=== PATIENT | female | born 1970 | race African-American/Black ===

== ENCOUNTER 2017-07-26 23:08 | Emergency (ER) | payer SELFPAY ==
[2017-07-26 23:58] LABS: BASOPHIL 0.6 % (0-2); EOSINOPHIL 2.4 % (0-5); HCT 42.4 % (37.0-47.0); HGB 14.3 g/dl (12.5-16.0); LYMPHOCYTE 23.1 % (15-48); MCH 29.5 pg (25.0-31.0); MCHC 33.7 g/dL (32.0-36.0); MCV 87.6 fL (78.0-100.0); MONOCYTE 5.9 % (0-12); MPV 11.5 fL (6.0-9.5); PLT 246 K/uL (150-400); RBC 4.84 M/uL (4.20-5.40); RDW 14.3 % (11.5-14.0); WBC 9.1 K/uL (4.0-10.5)
[2017-07-27 00:20] LABS: ALBUMIN 3.5 g/dL (3.5-5.0); BILIRUBIN - TOTAL 0.4 mg/dL (0.1-1.0); CREATININE 0.7 mg/dL (0.5-1.0); GLOBULIN (CALCULATION) 4.1 g/dL (2.2-4.2); POTASSIUM 3.8 mmol/L (3.5-5.1); TOTAL PROTEIN 7.6 g/dL (6.4-8.3)
== END 2017-07-27 02:59 | disposition home or self-care (01) ==
LOC: FER 23:08
PROVIDERS: Emergency Medicine Emergency Medical Services
DX: R10.84 Generalized abdominal pain (principal); R11.2 Nausea with vomiting, unspecified; R19.7 Diarrhea, unspecified; F17.210 Nicotine dependence, cigarettes, uncomplicated; I10 Essential (primary) hypertension; Z90.710 Acquired absence of both cervix and uterus; Z79.899 Other long term (current) drug therapy
CPT/HCPCS: 36415; 80053; 82150; 83690; 85025; J1170; J1885; J2405; Q9967

== ENCOUNTER 2021-01-11 03:29 | Day surgery (SDCO) | payer OTHER ==
[~2021-01-11 03:29] MED LIST: ASPIRIN EC81 MG PO; BRILINTA90 MG PO; CATAPRES0.1 MG PO; COZAAR 25MG TAB25 MG PO; FOLIC ACID1 MG PO; ISOSORBIDE MONO60 MG PO; K-TAB ER20 MEQ PO; KEFLEX250 MG PO; LIPITOR40 MG PO; LOPRESSOR25 MG PO; NITROQUIK SL0.4 MG SL; NORVASC5 MG PO; ONCE DAILY1 EACH PO; PENICILLIN V P250 M1 PO; PERCOCET 5-3251 EACH PO; PLAVIX75 MG PO; PROTONIX 40MG T40 MG PO; TOPROL XL 50 MG50 MG PO; VALSARTAN160 MG PO; VITAMIN B-1100 M1 PO; ZOFRAN4 MG PO; ZOFRAN8 MG PO
[2021-01-11 03:59] LABS: EOSINOPHIL 4.5 % (0-5); HCT 45.4 % (37.0-47.0); HGB 15.4 g/dl (12.5-16.0); LYMPHOCYTE 25.7 % (15-48); MCH 32.3 pg (25.0-31.0); MCHC 33.9 g/dL (32.0-36.0); MCV 95.2 fL (78.0-100.0); MONOCYTE 10.2 % (0-12); MPV 11.8 fL (6.0-9.5); NEUTROPHIL 58.4 % (41-80); NRBC 0; PLT 146 K/uL (150-400); RBC 4.77 M/uL (4.20-5.40); RDW 13.2 % (11.5-14.0); WBC 6.2 K/uL (4.0-10.5)
[2021-01-11 04:06] LABS: INR 1.08 (0.9-1.2); PROTHROMBIN TIME 13.3 SECONDS (11.4-13.6); PTT 28.8 SECONDS (22.2-34.7)
[2021-01-11 04:17] LABS: ALBUMIN 3.2 g/dL (3.4-5.0); BILIRUBIN - TOTAL 0.6 mg/dL (0.2-1.0); CREATININE 0.53 mg/dL (0.51-0.95); GLOBULIN (CALCULATION) 4.1 g/dL; POTASSIUM 3.4 mmol/L (3.5-5.1); TOTAL PROTEIN 7.3 g/dL (6.4-8.2)
[2021-01-11 05:27] LABS: ECSTASY (MDMA) NEGATIVE (NEGATIVE); MARIJUANA (THC) POSITIVE (NEGATIVE)
[2021-01-11 05:28] LABS: AMPHETAMINES NEGATIVE (NEGATIVE); BARBITURATES NEGATIVE (NEGATIVE); METHADONE NEGATIVE (NEGATIVE); OPIATES POSITIVE (NEGATIVE); OXYCODONE NEGATIVE (NEGATIVE)
[2021-01-11] MEDS ORDERED: AMLODIPINE-VAL1 EACH PO (09:58)
[2021-01-11] MEDS ORDERED: MOTRIN600 MG PO (10:00)
[2021-01-11] MEDS ORDERED: NORCO 5-325 TA1 EACH PO (10:00)
--- NOTE | 2021-01-11 15:50 | NUR ---
PATIENT ATTEMPTING TO LEAVE FLOOR. STOPPED AT ELEVATORS BY NURSING STAFF, EXPLAINED SHE COULD NOT LEAVE FLOOR DUE TO ADMISSION FOR CHEST PAIN AND HEART MONITOR REQUIREMENT. PATIENT STATING SHE WOULD LEAVE AMA UNLESS HER SIGNIFICANT OTHER WAS ALLOWED TO STAY THE NIGHT. PERMISSION GRANTED FOR SIGNIFICANT OTHER TO STAY PER CNO. PATIENT PLACED BACK ON HEART MONITOR, ANXIETY MEDICINE PROVIDED, WILL CONTINUE TO MONITOR.
[2021-01-12 05:37] LABS: HCT 41.9 % (37.0-47.0); HGB 14.3 g/dl (12.5-16.0); LYMPHOCYTE 39.8 % (15-48); MCH 32.5 pg (25.0-31.0); MCHC 34.1 g/dL (32.0-36.0); MCV 95.2 fL (78.0-100.0); MONOCYTE 12.6 % (0-12); MPV 11.9 fL (6.0-9.5); NEUTROPHIL 40.6 % (41-80); NRBC 0; PLT 145 K/uL (150-400); RDW 13.3 % (11.5-14.0); WBC 4.8 K/uL (4.0-10.5)
[2021-01-12 05:59] LABS: BUN/CREAT RATIO (CALC) 10.4 RATIO; CREATININE 0.48 mg/dL (0.51-0.95); MAGNESIUM 1.9 mg/dL (1.8-2.4); POTASSIUM 3.7 mmol/L (3.5-5.1)
[2021-01-12] MEDS ORDERED: NITROGLYCERIN0.4 MG SL (08:58)
[2021-01-12] MEDS ORDERED: LOPRESSOR25 MG PO (08:58)
[2021-01-12] MEDS ORDERED: ASPIRIN EC81 MG PO (08:58)
[2021-01-12] MEDS ORDERED: AMLODIPINE-VAL1 EACH PO (08:58)
--- NOTE | 2021-01-12 09:36 | NUR ---
PT. IS OBS. PLEASE CONSIDER INPT OR D/C, THANKS
--- NOTE | 2021-01-13 08:27 | NUR ---
REPORTS SHE LIVES WITH HER BOYFRIEND PLEASE ADVISE OF DISCHARGE NEEDS;
== END 2021-01-12 10:00 | disposition home or self-care (01) ==
LOC: FER 03:29 → FTCU 07:30
PROVIDERS: Emergency Medicine Emergency Medical Services; ADMIT Internal Medicine
DX: R07.9 Chest pain, unspecified (principal); I25.10 Atherosclerotic heart disease of native coronary artery without angina pectoris; I25.2 Old myocardial infarction; J44.9 Chronic obstructive pulmonary disease, unspecified; E78.5 Hyperlipidemia, unspecified; F17.210 Nicotine dependence, cigarettes, uncomplicated; Z79.899 Other long term (current) drug therapy; Z98.890 Other specified postprocedural states; Z95.5 Presence of coronary angioplasty implant and graft; Z20.822 Contact with and (suspected) exposure to COVID-19; R11.2 Nausea with vomiting, unspecified; I24.9 Acute ischemic heart disease, unspecified
CPT/HCPCS: 36415; 71045; 80048; 80053; 80305; 83690; 83735; 84484; 85025; 85610; 85730; 93005; 94010; G0378; J1650; J2270; J2405; J7030; U0002

== ENCOUNTER 2021-07-08 23:18 | Emergency (ER) | payer OTHER ==
[~2021-07-08 23:18] MED LIST changes: +AMLODIPINE-VAL1 EACH PO; +MOTRIN600 MG PO; +NITROGLYCERIN0.4 MG SL; +NORCO 5-325 TA1 EACH PO
[2021-07-08 23:54] LABS: INR 1.02 (0.9-1.2); PROTHROMBIN TIME 12.8 SECONDS (11.8-13.4)
[2021-07-09 00:07] LABS: ALBUMIN 3.1 g/dL (3.4-5.0); BILIRUBIN - TOTAL 0.8 mg/dL (0.2-1.0); BUN/CREAT RATIO (CALC) 16.9 RATIO; CREATININE 0.59 mg/dL (0.51-0.95); GLOBULIN (CALCULATION) 5.4 g/dL; TOTAL PROTEIN 8.5 g/dL (6.4-8.2)
[2021-07-09 00:10] LABS: BASOPHIL 0.8 % (0-2); EOSINOPHIL 3.1 % (0-5); HCT 47.2 % (37.0-47.0); LYMPHOCYTE 47.3 % (15-48); MCH 32.7 pg (25.0-31.0); MCHC 33.9 g/dL (32.0-36.0); MCV 96.3 fL (78.0-100.0); MONOCYTE 7.8 % (0-12); MPV 12.1 fL (6.0-9.5); NEUTROPHIL 40.8 % (41-80); NRBC 0; PLT 217 K/uL (150-400); RDW 14.2 % (11.5-14.0); WBC 8.9 K/uL (4.0-10.5)
[2021-07-09 00:13] LABS: POTASSIUM 6.2 mmol/L (3.5-5.1)
[2021-07-09 02:46] LABS: CREATININE 0.53 mg/dL (0.51-0.95)
[2021-07-09 02:53] LABS: POTASSIUM 2.9 mmol/L (3.5-5.1)
[2021-07-09 03:55] LABS: AMPHETAMINES NEGATIVE (NEGATIVE); BARBITURATES NEGATIVE (NEGATIVE); ECSTASY (MDMA) NEGATIVE (NEGATIVE); MARIJUANA (THC) POSITIVE (NEGATIVE); METHADONE NEGATIVE (NEGATIVE); OPIATES NEGATIVE (NEGATIVE); OXYCODONE NEGATIVE (NEGATIVE)
== END 2021-07-09 06:55 | disposition home or self-care (01) ==
LOC: FER 23:18
PROVIDERS: Emergency Medicine
DX: R07.89 Other chest pain (principal); F10.129 Alcohol abuse with intoxication, unspecified; F17.200 Nicotine dependence, unspecified, uncomplicated; Y90.6 Blood alcohol level of 120-199 mg/100 ml
CPT/HCPCS: 36415; 71045; 80048; 80053; 80305; 83690; 84132; 84484; 85025; 85379; 85610; 93005; G0480; J0610; J2405; J3475; J3480; J7030